=== PATIENT | female | born 1975 | race Caucasian/White ===

== ENCOUNTER → 2020-09-29 | Outpatient (CLI) | payer MEDICAID ==
[~2020-09-29] MED LIST: FERR324T4 PO; LIDOCAINE HCL 1% 20ML VIAL (Pyxis) INJ ONE; MOTRIN; SODIUM BICARBONATE 4% (2.4MEQ) 5ML VIAL IV ONE
== END | disposition home or self-care (01) ==
LOC: LAB 09:33
PROVIDERS: ATTEND Surgery
DX: Z01.812 Encounter for preprocedural laboratory examination (principal); Z20.822 Contact with and (suspected) exposure to COVID-19
CPT/HCPCS: 87426

== ENCOUNTER → 2020-09-30 | Day surgery (SDC) | payer MEDICAID ==
[~2020-09-30] MED LIST changes: +BUPIVACAINE HCL 0.5% (5MG/ML) 50ML ONE; -LIDOCAINE HCL 1% 20ML VIAL (Pyxis) INJ ONE; +METHYLENE BLUE 50 MG/10 ML AMP IV ONE; +SKIN ADHESIVE 0.7 GM EA TOP ONE; -SODIUM BICARBONATE 4% (2.4MEQ) 5ML VIAL IV ONE
== END | disposition home or self-care (01) ==
LOC: RAD 09:28
PROVIDERS: ATTEND Surgery
DX: N60.91 Unspecified benign mammary dysplasia of right breast (principal); Z79.899 Other long term (current) drug therapy; Z72.89 Other problems related to lifestyle
CPT/HCPCS: 19281; 19285; 76641

== ENCOUNTER → 2020-10-01 | Day surgery (SDC) | payer MEDICAID ==
[~2020-10-01] VITALS: Ht 167.6 cm; Wt 109.3 kg
[~2020-10-01] MED LIST changes: -BUPIVACAINE HCL 0.5% (5MG/ML) 50ML ONE; +CEFAZOLIN SODIUM 1000MG/VIAL ONE; +DEXAMETHASONE 4MG/ML 1ML VIAL ONE; +EPHEDRINE SULFATE 50MG/ML VIAL ONE; +ESMOLOL HCL 10MG/ML 10ML VIAL IV ONE; +FENTANYL CITRATE/PF 50MCG/ML 2ML VIAL ONE; +FLUMAZENIL 0.1 MG/ML 5ML VIAL IV ONE; +GLYCOPYRROLATE 0.2 MG/ML 2ML VIAL ONE; +HYDRALAZINE 20MG/ML VIAL ONE; +HYDROMORPHONE HCL/PF 2MG/ML CPJ IV PRN; -METHYLENE BLUE 50 MG/10 ML AMP IV ONE; +METOCLOPRAMIDE HCL 10MG/2ML VIAL ONE; +MIDAZOLAM HCL 2 MG/2 ML VIAL ONE; +NEOSTIGMINE METHYLSULFATE 1MG/ML 10 ML VIAL ONE; +PROPOFOL 200MG/20ML VIAL IV ONE; +ROCURONIUM BROMIDE 10MG/ML VIAL 5ML IV ONE; -SKIN ADHESIVE 0.7 GM EA TOP ONE; +SODIUM CHLORIDE 0.9% 1,000 ML IV SCH; +SUCCINYLCHOLINE CHLORIDE 200MG/10ML IV ONE
[2020-10-01 08:55] LABS: UCG SCREEN NEGATIVE
[2020-10-01 13:09] VITALS: BP 138/75
== END | disposition home or self-care (01) ==
LOC: OR 07:52
PROVIDERS: ATTEND Surgery
DX: N62 Hypertrophy of breast (principal); E11.9 Type 2 diabetes mellitus without complications; Z79.899 Other long term (current) drug therapy; Z98.890 Other specified postprocedural states; Z72.89 Other problems related to lifestyle
CPT/HCPCS: 19125; 76098; 81025; 82962; 88307; J0330; J0360; J0690; J1100; J1170; J2250; J2704; J2710; J2765; J3010; J3490; Q9968